=== PATIENT | female | born 1995 | race Hispanic/Latino ===

== ENCOUNTER 2019-01-15 18:25 | Emergency (ER) | payer BC, MEDICAID, OTHER ==
[2019-01-15 18:50] VITALS: BMI 29.1
--- NOTE | 2019-01-15 20:44 | OBHP ---
Datetime: 01/15/2019 19:40 IP Adm Impression: , intrauterine ; No Active Labor; Intact Membranes IP Admit Plan: Observation/Evaluation Admit Comment, IP Provider: 23 yo female G1 with and IUP at 31.6 weeks and sent by Dr. Rao after s he complain of Decrease Movement. Denies LOF, VB or VD EGA AdmitDate IP: 31.6 IP Chief Complaint: Decreased movement
[2019-01-15 21:08] LABS: SQUAMOUS EPITHIAL 2 /hpf (0-5); URINE BILIRUBIN NEGATIVE (NEGATIVE); URINE BLOOD NEGATIVE (NEGATIVE); URINE CLARITY Clear (Clear); URINE COLOR Yellow (YELLOW); URINE GLUCOSE (UA) NORMAL (Normal); URINE LEUKOCYTE ESTERASE NEG Leu/uL (Negative); URINE PROTEIN NEGATIVE (NEGATIVE); URINE UROBILINOGEN NORMAL mg/dL (0.2-1.0)
--- NOTE | 2019-01-15 22:43 | OBDCSUM ---
Datetime: 01/15/2019 21:59 Discharged to, Provider: Home Follow up at, Provider: Disch Instr Activity: Normal activity Disch Instr Diet: Regular Discharge Instructions, Provider: Routine instructions given Discharge Time: 01/15/2019 21:59 Follow up in weeks, Provider: 01/28/19 Disch Referrals: None Disch Activity Restrictions: No exercising; No lifting; Minimize stair-climbing Discharge Comment, Provider: A/P 31.6 weeks IUP Decrease movement NST and BPP, per Dr. Rao NST Reactive BPP 05/07 with DELANEY 23.8 Stable and Satisfactory condition Will D/C home with instructions to perform Kick counts and per Dr. Rao Will call Dr. Rao's office on Saturday for F/Upg Discharge Diagnosis Prov Other: Decrease Movement Mild Polyhydramnios
[2019-01-16 04:47] VITALS: BP 119/73; PULSE 97; RESP 18; TEMP 98.5
--- NOTE | 2019-01-16 09:03 | US ---
Date of service: 01/15/2019 PROCEDURE: Biophysical profile and limited obstetrical ultrasound HISTORY: Decreased Movement COMPARISON: None TECHNIQUE: Standard protocol for this study/examination. FINDINGS: FINDINGS: Biophysical profile score 8/8 Based on the followin. breathing movements: 2/2 2. Gross body movement: 2/2 3. tone: 2/2 4. Qualitative amniotic fluid index: 2/2 Amniotic fluid index 23.8 cm. Breech presentation. Anterior/fundal placenta. No evidence of abruption or previa Gestational age derived from LMP 31 weeks 6 days. CHIDI 03/13/2019. Gestational age derived from the following biometric parameters 32 weeks 3 days. CHIDI 03/09/2019 Biparietal diameter 8.26 cm Head circumference 30.16 cm Abdominal circumference 27.42 cm Femur length 6.10 cm Estimated weight 1859 g Calculated cardiac rate 132 beats per min. Closed cervix measuring 3.10 cm IMPRESSION: 32 weeks 3 days live intrauterine gestation. Gestational concordance documented. Anterior/fundal placenta. Breech presentation. Concordant findings (preliminary report) provided by [facility].
== END 2019-01-15 22:30 | disposition home or self-care (01) ==
LOC: C.EROB 18:25
DX: O36.8130 Decreased fetal movements, third trimester, not applicable or unspecified (principal); O40.3XX0 Polyhydramnios, third trimester, not applicable or unspecified; Z3A.31 31 weeks gestation of pregnancy

== ENCOUNTER 2019-02-14 02:15 | Emergency (ER) | payer BC ==
[2019-02-14 02:55] VITALS: BMI 30.5
[2019-02-14] MEDS ORDERED: Lactated Ringer's 1,000 ML IV ONE (03:18)
[2019-02-14 03:50] LABS: BASO # 0.1 K/uL (0.0-0.2); BASO % 1.1 % (0.0-2.0); EOS # 0.1 K/uL (0.0-0.7); EOS % 0.5 % (0.0-4.0); HEMOGLOBIN 10.5 g/dL (11.0-16.0); LYMPH # 2.3 K/uL (1.0-4.3); LYMPH % 21.1 % (20.0-40.0); MEAN CORPUSCULAR HEMOGLOBIN 31.1 pg (27.0-31.0); MEAN CORPUSCULAR HGB CONC 34.6 g/dL (33.0-37.0); MEAN PLATELET VOLUME 7.6 fL (7.2-11.7); MONO # 0.5 K/uL (0.0-0.8); MONO % 4.6 % (0.0-10.0); NEUT % 72.7 % (50.0-75.0); RBC 3.38 Mil/uL (3.80-5.20); RED CELL DISTRIBUTION WIDTH 13.9 % (11.5-14.5)
[2019-02-14 04:37] LABS: SQUAMOUS EPITHIAL 5 /hpf (0-5); URINE BACTERIA RARE (<OCC); URINE BILIRUBIN NEGATIVE (NEGATIVE); URINE BLOOD NEGATIVE (NEGATIVE); URINE CLARITY Hazy (Clear); URINE COLOR Yellow (YELLOW); URINE GLUCOSE (UA) NORMAL (Normal); URINE LEUKOCYTE ESTERASE NEG Leu/uL (Negative); URINE PROTEIN NEGATIVE (NEGATIVE); URINE UROBILINOGEN NORMAL mg/dL (0.2-1.0)
[2019-02-14] MEDS ORDERED: Betamethasone Soluspan 30 mg/5mL Inj Susp IM ONE (06:39)
--- NOTE | 2019-02-14 07:02 | OBHP ---
Datetime: 02/14/2019 03:17 IP Adm Impression: , intrauterine ; No Active Labor IP Admit Plan: Discharge home Admit Comment, IP Provider: This is a private patient of Dr. Alexandra Rao 23 y.o. , LMP 06/06/18, CHIDI 03/13/19, EGA 36w 1d c/o abdominal pressure and tightening that come s and goes: onset 1100 hours, pain scale then 6/10, worsening throughout the day until "worse" and sh e decided to come in for evaluation. At this time, pain scale 8/10 - 9/10. (+) AFM; Denies LOF, VB. L ast sexually active 3 weeks ago. Did not call her doctor all day "I thought it was just his positioni ng. I felt all the presure only on my left side. I got concerned when my whole abdomen felt the press ure and tightness". (+) stuffy nose. Denies fever, chills, cough; nausea, vomiting; headaches, dizzin ess, lightheadedness, palpitations, chest pain or shourtness of breath. No sick contacts. Drinks appr oximately 3, 16-oz bottles of water per day. care: Dr. Rao: noted for "the fluid is high around the baby". No other issues. 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 (+) ron, 2017. Denies other STIs, abnormal Pap, myomata or ovarian cysts PMH: denies PSH: denies NKDA Meds: PNV - QD Soc Hx: denies tobacco, illicit drug or EtOH use. With FOB x 3 years; (+) cohabitation. 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 Fam Hx: Mother alive 50 y.o. - thyroid disorder. Father - ;andrez cancer ( h/o tobacco use). No other fam h/o cancer. (+) Pat fam h/o DM P.E.: as above. WD; slightly anxious; in mild discomfort with contractions. Awake, alert, oriented to time, person and place. Pleasant and cooperative Assessment: 23 y.o. Po, 36w 1d, uterine contractions - R/O labor. R/O UTI. Category 1 carmen cng. Clinically stable. Pln: 1) IVFs 2) U/A and CBC 3) Re-examine in 2-3 hours. If no cervical change, can D/C home; prior to which to administer Celestone 12 mg IM x 1; repeat in 24 hours. 4) If cervical change is made, possible delivery - as per, and D/W, Dr. Rao Addendum: 0640 hours -Patient received in LDR#4, fell alseep and easily awakened. Reports pain has improved "I did fall asleep'". Pain scale now 2/10. Reports pain is still present under her right rib. "I don't feel the contractions any more".(+) AFM. - cervical exam: FT/30/-3. mid to anterior. firm in consistency - labs: WBC = 11. H/H 10.5/30.4. Assessment: No cervical change made - no evidence of labor. No evidence of UTI. Patient co unseled to increase p.o. intake of water to half her weight in ounces of water (approx 95 oz); to sto p working. Mild anemia - resume iron supplementation 1 tab per day; and to increase p.o. intake of ir on-rich foods. Plan: 1) Celestone 12 mg IM x 1 now, return in 24 hours to complete course with second dose 2) As above. 3) Reviewed S/S PTL 4) Keep appoinment for Saturday 5) Start iron 1 tab p.o. QD 6) Discharge home - as per, and D/W, Dr. Rao Pelvic Type - PN: Adequate Extremities - PN: Normal Abdomen - PN: Normal Back - PN: Normal Breast - PN: Not Done Lungs - PN: Normal Heart - PN: Normal Thyroid - PN: Not Done Neurologic - PN: Normal HEENT - PN: Normal General - PN: Normal Presentation-Admit: Vertex FHR - Baseline A Provider: 135 Contraction Comments Provider: 3-4 Comments, ACOG Physical Exam: Abdomen: Gravid. Non tender. Moderately firm with contractions. Fundal height 37cm Cervical exam: very anterior, firm All other systems reviewed and are negative Gestation - Est Wks by US: 36w 1d EGA AdmitDate IP: 36.1 Vital Signs Provider: Reviewed; Within Normal Limits IP Chief Complaint: Uterine contractions NICHD Variability Prov Fetus A: Moderate 6-25bpm NICHD Accel Fetus A IP Provider: 15X15 FHR Category Provider Fetus A: Category I NICHD Decel Fetus A IP Provider: None Dilatation, Provider: FT Effacement, Provider: 30 Station, Provider: -3 Genitourinary Exam: Normal DTRs - PN: Not Done Datetime: 01/15/2019 19:40 Membranes, Provider: Intact
[2019-02-14 11:36] VITALS: BP 121/68; PULSE 97; RESP 20; TEMP 97.2
== END 2019-02-14 07:36 | disposition home or self-care (01) ==
LOC: C.EROB 02:15
DX: O47.03 False labor before 37 completed weeks of gestation, third trimester (principal); Z3A.36 36 weeks gestation of pregnancy
CPT/HCPCS: 81001; 85025; 96360; 96372; 99284; J0702; J7120

== ENCOUNTER 2019-02-25 17:18 | Inpatient (IN) | payer BC, MEDICAID ==
[2019-02-25 17:51] VITALS: BMI 31.3
[2019-02-25] MEDS ORDERED: Lactated Ringer's 1,000 ML IV ONE (17:51)
--- NOTE | 2019-02-25 18:20 | OBHP ---
Datetime: 02/25/2019 18:06 IP Adm Impression: Term, intrauterine ; No Active Labor IP Admit Plan: Admit to unit; Initiate labor induction protocol Admit Comment, IP Provider: This is a private patient of Dr. Alexandra Rao 23 y.o. , LMP 06/06/18, CHIDI 03/13/19, EGA 37w 5d for IOL due to polyhydramnios: per patient DELANEY 02/18 = 31 cm; 02/24 28 cm. (+) AFM; Denies LOF, VB. Last sexually active 2 nights ago. Denies fever, chills, cough; nausea, vomiting; headaches, dizziness, lightheadedness, palpitations, chest pain or s hourtness of breath. Seen 02/14 for contractions: S/P celestone x 1 does; did not return for s econd dose "I gues I misunderstood when I was discharged". care: Dr. Rao: Po;yhydramnios. Abnormal 1 hr glucose screen = 141; 3hr GTT 84/142/138/ 102. 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 Denies other STIs, abnormal Pap, myomata or ovarian cysts PMH: denies PSH: denies NKDA Meds: PNV - QD Soc Hx: denies tobacco, illicit drug or EtOH use. With FOB x 3 years; (+) cohabitation. 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 Fam Hx: Mother alive 50 y.o. - thyroid disorder. Father - ;andrez cancer ( h/o tobacco use). No other fam h/o cancer. (+) Pat fam h/o DM P.E.: as above. WD in NAD. Awake, alert, oriented to time, person and place. Pleasant and cooperat dina. Acompanied by Assessment: 23 y.o. P0, 37w 5d, IOL due to polyhydramnios. GBS (+). Category 1 tracing. D/W patie nt: cervical ripening agent, possible pitocin, pain managemnet options. Patient expressed an understa nding and agrees. No questions offered. Patient is clincially stable. Plan: 1) Admit 2) NPO 3) IVFs 4) Continuous EFM 5) Admission labs 6) Cervidil 7) Start penicillin when in active labor. 8) Anticpate vaginal delivery -as per Dr. Rao Pelvic Type - PN: Adequate Extremities - PN: Normal Abdomen - PN: Normal Back - PN: Normal Breast - PN: Not Done Lungs - PN: Normal Heart - PN: Normal Thyroid - PN: Not Done Neurologic - PN: Normal HEENT - PN: Normal General - PN: Normal FHR - Baseline A Provider: 145 Comments, ACOG Physical Exam: Abdomen: Gravid. Soft. Non tender. Fundal height All other systems reviewed and are negative Gestation - Est Wks by US: 37w 5d IP Hx Assessment: The History has been Reviewed and is Current EGA AdmitDate IP: 37.5 Vital Signs Provider: Reviewed IP Chief Complaint: Scheduled induction of labor NICHD Variability Prov Fetus A: Moderate 6-25bpm Genitourinary Exam: Normal DTRs - PN: Not Done
[2019-02-25 18:22] LABS: BASO % 0.3 % (0.0-2.0); EOS % 0.3 % (0.0-4.0); HEMOGLOBIN 10.5 g/dL (11.0-16.0); LYMPH # 2.2 K/uL (1.0-4.3); LYMPH % 16.6 % (20.0-40.0); MEAN CELL VOLUME 88.4 fL (81.0-99.0); MEAN CORPUSCULAR HEMOGLOBIN 30.5 pg (27.0-31.0); MEAN CORPUSCULAR HGB CONC 34.6 g/dL (33.0-37.0); MEAN PLATELET VOLUME 7.6 fL (7.2-11.7); MONO # 0.8 K/uL (0.0-0.8); MONO % 5.6 % (0.0-10.0); NEUT # 10.3 K/uL (1.8-7.0); NEUT % 77.2 % (50.0-75.0); NRBC % 0.1 % (0.0-2.0); RBC 3.43 Mil/uL (3.80-5.20); RED CELL DISTRIBUTION WIDTH 14.1 % (11.5-14.5); WHITE BLOOD COUNT 13.4 K/uL (4.8-10.8)
[2019-02-25 18:30] LABS: SQUAMOUS EPITHIAL 12 /hpf (0-5); URINE BACTERIA OCC (<OCC); URINE BILIRUBIN NEGATIVE (NEGATIVE); URINE BLOOD NEGATIVE (NEGATIVE); URINE CALCIUM OXALATE CRYSTALS OCC /hpf (<OCC); URINE CLARITY Hazy (Clear); URINE COLOR Yellow (YELLOW); URINE GLUCOSE (UA) NORMAL (Normal); URINE LEUKOCYTE ESTERASE TRACE Leu/uL (Negative); URINE PROTEIN NEGATIVE (NEGATIVE); URINE UROBILINOGEN NORMAL mg/dL (0.2-1.0)
[2019-02-25] MEDS: Lactated Ringer's 1,000 ML IV SCH (18:39)
[2019-02-25 18:40] LABS: ALB/GLOB RATIO 1.2 (1.0-2.1); ALBUMIN 3.7 g/dL (3.5-5.0); ALT/SGPT 12 U/L (9-52); AST/SGOT 15 U/L (14-36); BLOOD UREA NITROGEN 11 mg/dL (7-17); CALCIUM 9.3 mg/dl (8.6-10.4); GFR NON-AFRICAN AMERICAN > 60
--- NOTE | 2019-02-25 18:56 | OBADHP ---
Datetime: 02/25/2019 18:06 Admit Comment, IP Provider: This is a private patient of Dr. Alexandra Rao 23 y.o. , LMP 06/06/18, CHIDI 03/13/19, EGA 37w 5d for IOL due to polyhydramnios: per patient DELANEY 02/18 = 31 cm; 02/24 28 cm. (+) AFM; Denies LOF, VB. Last sexually active 2 nights ago. Denies fever, chills, cough; nausea, vomiting; headaches, dizziness, lightheadedness, palpitations, chest pain or s hortness of breath. Seen 02/14 for contractions: S/P celestone x 1 dose; did not return for se cond dose "I guess I misunderstood when I was discharged". care: Dr. Rao: Polyhydramnios. Abnormal 1 hr glucose screen = 141; 3hr GTT 84/142/138/ 102. 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 Denies other STIs, abnormal Pap, myomata or ovarian cysts PMH: denies PSH: denies NKDA Meds: PNV - QD Soc Hx: denies tobacco, illicit drug or EtOH use. With FOB x 3 years; (+) cohabitation. 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 Fam Hx: Mother alive 50 y.o. - thyroid disorder. Father - lung cancer (h/o tobacco use). No other fam h/o cancer. (+) Pat fam h/o DM P.E.: as above. WD in NAD. Awake, alert, oriented to time, person and place. Pleasant and cooperat dina. Accompanied by Assessment: 23 y.o. P0, 37w 5d, IOL due to polyhydramnios. GBS (+). Category 1 tracing. D/W patie nt: cervical ripening agent, possible pitocin, pain management options. Patient expressed an understa nding and agrees. No questions offered. Patient is clincially stable. Plan: 1) Admit 2) NPO 3) IVFs 4) Continuous EFM 5) Admission labs 6) Cervidil 7) Start penicillin when in active labor. 8) Anticpate vaginal delivery -as per Dr. Rao Addendum: 1643 hours - cervidil placed in posterior vaginal vault Pelvic Type - PN: Adequate Extremities - PN: Normal Abdomen - PN: Normal Back - PN: Normal Breast - PN: Not Done Lungs - PN: Normal Heart - PN: Normal Thyroid - PN: Not Done Neurologic - PN: Normal HEENT - PN: Normal General - PN: Normal FHR - Baseline A Provider: 145 Membranes, Provider: Intact Contraction Comments Provider: irregular Comments, ACOG Physical Exam: Abdomen: Gravid. Soft. Non tender. Fundal height 41 cm All other systems reviewed and are negative Gestation - Est Wks by US: 37w 5d IP Hx Assessment: The History has been Reviewed and is Current Vital Signs Provider: Reviewed IP Chief Complaint: Scheduled induction of labor NICHD Variability Prov Fetus A: Moderate 6-25bpm FHR Category Provider Fetus A: Category I Dilatation, Provider: FT Effacement, Provider: 30 Station, Provider: -3 Genitourinary Exam: Normal DTRs - PN: Not Done EGA AdmitDate IP: 37.5 IP Adm Impression: Term, intrauterine ; No Active Labor IP Admit Plan: Admit to unit; Initiate labor induction protocol Datetime: 02/14/2019 03:17 Presentation-Admit: Vertex NICHD Accel Fetus A IP Provider: 15X15 NICHD Decel Fetus A IP Provider: None
[2019-02-26] MEDS ORDERED: Nalbuphine 20 mg/ml Inj (1 ml) IVP PRN (02:00)
[2019-02-26] MEDS ORDERED: Oxytocin 30 UNIT in NS 500 ml 30 UNITS/500 ML BAG IV SCH (07:00)
[2019-02-26] MEDS ORDERED: Lactated Ringer's 1,000 ML IV ONE (07:29)
[2019-02-26] MEDS ORDERED: Oxytocin 30 UNIT in NS 500 ml 30 UNITS/500 ML BAG IV ONE (07:44)
[2019-02-26] MEDS ORDERED: Penicillin G Potassium 5 MU in Dextrose 5% In Water 50 ML IV ONE (08:38)
[2019-02-26] MEDS ORDERED: Penicillin G 5 Million Unit Vial IVPB ONE ×2 (08:39→08:41)
[2019-02-26] MEDS ORDERED: Bupivacaine HCl 0.5% PF (10 ml) Inj ONE (08:50)
[2019-02-26] MEDS ORDERED: Bupivacaine HCl/FentaNYL Cit 100 ML EPI ONE ×2 (09:14→16:08)
--- NOTE | 2019-02-26 11:06 | OBPN ---
Datetime: 02/26/2019 07:23 IP Progress Impression: Normal progression of labor IP Procedures: Sterile Vag Exam IP Progress Plan: Continue present management; Augmentation; Anesthesia consult Membranes, Provider: Intact Contraction Comments Provider: irregular FHR - Baseline A Provider: 135 Gestation - Est Wks by US: 37w 6d Presentation-Admit: Vertex IP Progress Note Comment: Patient received in LDR#4: examined at approx 0720 hours It was explained to patient the next step in continued cervical ripening with the placement of int racervical balloon. Patient expressed an understanding and agrees. Cervical exam: as above. Intracervical balloon placed without incident, 80mL/80mL per balloon Assessment: 23 y.o. P0, 37w 6d, polyhydramnios - IOL. Cervical ripening as above. Category 1 marina ng. Patient receptive to epidural at this time. Patient is clinically stable. Plan: 1) As above. 2) Epidural placement 3) Pitocin augmentation 4) Anticipate vaginal delivery - as per Dr. Rao Vital Signs Provider: Reviewed; Within Normal Limits NICHD Accel Fetus A IP Provider: 15X15 FHR Category Provider Fetus A: Category I NICHD Variability Prov Fetus A: Moderate 6-25bpm Dilatation, Provider: 2 Effacement, Provider: 50 Station, Provider: -3 NICHD Decel Fetus A IP Provider: None
--- NOTE | 2019-02-26 12:23 | OBPN ---
Datetime: 02/26/2019 12:13 IP Progress Impression: Normal progression of labor IP Procedures: Artificial ROM IP Progress Plan: Continue present management Membranes, Provider: Ruptured Amniotic Fluid Color, Provider: Clear Contraction Comments Provider: q 2- 3m FHR - Baseline A Provider: 140 Gestation - Est Wks by US: 37.6 Presentation-Admit: Vertex IP Progress Note Comment: pt admitted for prom witwh polydramnios s/p cervidi s/p moody baloon pitocin forebag AROM clear VS EFM: Cat I TOCO: q 2- 3min Pit 10 mu/min a/p in active labor cont pitoic s/p epdiural cont current magnent Vital Signs Provider: Reviewed; Within Normal Limits FHR Category Provider Fetus A: Category I NICHD Variability Prov Fetus A: Moderate 6-25bpm Dilatation, Provider: 5 Effacement, Provider: 60 Station, Provider: -2 NICHD Decel Fetus A IP Provider: None
[2019-02-26] MEDS: Lactated Ringer's 1,000 ML IV SCH (13:18)
[2019-02-26] MEDS ORDERED: Sodium Citrate/Citric Acid 15 ml Sol PO ONE (15:51)
[2019-02-26] MEDS ORDERED: cefOXitin IV 2 gm in Dextrose 2 GM/50 ML BAG IVPB ONE ×2 (15:51→15:55)
[2019-02-26] MEDS ORDERED: Sodium Citrate/Citric Acid 15 ml Sol ONE (15:55)
[2019-02-26] MEDS ORDERED: Sodium Bicarbonate (8.4%) 50 mEq Vial ONE (16:22)
[2019-02-26] MEDS ORDERED: Lidocaine 2% MPF (5 ml) Inj ONE (16:25)
[2019-02-26] MEDS ORDERED: ePHEDrine 50 mg/ml Inj ONE (16:25)
[2019-02-26] MEDS ORDERED: Morphine 1 mg/ml preservative-free Inj(Duramorph) ONE (16:50)
[2019-02-26] MEDS ORDERED: Midazolam 2 MG/2 ML VIAL ONE (16:50)
--- NOTE | 2019-02-26 17:01 | OBPN ---
Datetime: 02/26/2019 14:46 IP Progress Impression: Reassuring heart rate IP Procedures: Intrauterine Pressure Catheter; Sterile Vag Exam IP Progress Plan: Induction Membranes, Provider: Ruptured Amniotic Fluid Color, Provider: Clear FHR - Baseline A Provider: 140 Gestation - Est Wks by US: 37.6 Presentation-Admit: Vertex IP Progress Note Comment: Pseen and examined per Dr. Rao's request SVE unchanged for more than 2 hours Pitocin at 14 Mu/min IUPC placed with ease and UC's adequate with MVU > 200 in 10 minutes Pitocin increased to 16 mU/min head still very high and pt aware of no descent until now Dr. Rao aware and states that she will be here shortly tracing reassuring Continue close monitoring at this time and present management NICHD Accel Fetus A IP Provider: 10X10 NICHD Variability Prov Fetus A: Moderate 6-25bpm Dilatation, Provider: 4-5 Effacement, Provider: 60 Station, Provider: -3 NICHD Decel Fetus A IP Provider: None
[2019-02-26] MEDS ORDERED: Oxycodone/Acetaminophen 5/325 mg Tab PO PRN (17:32)
[2019-02-26] MEDS: Simethicone 80 mg Chewtab PO SCH ×2 (20:30→21:55)
[2019-02-27] MEDS: Lactated Ringer's 1,000 ML IV SCH (00:48)
[2019-02-27 07:59] LABS: HEMOGLOBIN 10.1 g/dL (11.0-16.0); MEAN CELL VOLUME 88.7 fL (81.0-99.0); MEAN PLATELET VOLUME 7.7 fL (7.2-11.7); RBC 3.26 Mil/uL (3.80-5.20); RED CELL DISTRIBUTION WIDTH 14.1 % (11.5-14.5)
--- NOTE | 2019-02-27 09:19 | OBPPN ---
Datetime: 02/27/2019 09:16 PP Pain Prov: Within normal limits PP Nausea Prov: Denies PP Flatus Prov: No PP BM Prov: No PP Breasts Prov: Normal PP Heart Prov: Normal PP Lungs Prov: Normal PP Abdomen/Uterus Prov: Normal PP Lochia Prov: Normal PP Vulva/Perineum Prov: Normal PP CVA Tenderness Prov: Normal PP Extremities Prov: Normal PP C/S Incision Prov: Normal PP Progress Prov: Normal PP Impression Prov: Normal progression PP Plan Prov: Continue present management PP Progress Note Prov: pt seen and examined with no complaints. pt reprots pain controlled. pt is am bulating, voidng, passing flatus, bresat feeding, pt denie any fever, chills, nause, vomiting, cp, so b, lightheadness, dizzyness VSS PE GEN NAD AA ox 3 BREAST: NT, Non engorged b/l CVS: RRR, +S1/S2 ABD: soft, NT/ND, +BS, no guarding no broeudn tendners,s no rgidity FUNDUS: Firm, below level of umbilius INCISCION C/D?I healign well VE: minimal lochia, non fusl smelling EXT: negative homans sign, no calf tendnerness a/p s/p PLTCS POD #1 doing well, stable for discharge dc moody regular diet bowel regimen abdominal binder incentive spirometer am labs Vital Signs Provider PP: Reviewed
[2019-02-27] MEDS: Simethicone 80 mg Chewtab PO SCH ×4 (10:32→22:36)
[2019-02-27] MEDS: Prenatal Multivit/Folic Acid/Iron Tab PO SCH (10:32)
--- NOTE | 2019-02-27 13:12 | OP ---
PROCEDURE DATE: 02/26/2019 PREOPERATIVE DIAGNOSIS: Arrest of dilation. POSTOPERATIVE DIAGNOSIS: Arrest of dilation. PROCEDURE PERFORMED: Primary low transverse section. SURGEON: Alexandra Rao MD CLARITY DEVELOPER: Shahida Mehta DO OPERATIVE FINDINGS: A live male infant, Apgars 9 and 9, weight of 7 pounds 3 ounces. Normal-appearing uterus, tubes and ovaries bilaterally. Cord noted at uterine incision. Dr. Shahida Mehta was the assistant public defender present for the entire case and essential in gaining entry, retraction, exposure, helping to hold the bladder blade, delivering the , closing all layers and was present for the entire case. ESTIMATED BLOOD LOSS: 800 mL. BLOOD PRODUCTS: None. COMPLICATIONS: None. SPECIMEN: Placenta. DESCRIPTION OF PROCEDURE: The patient was taken to the operating room where she was given spinal anesthesia. Once it was found to be adequate. She was placed on the operating table in the dorsal supine position. The patient was then prepped and draped in the usual sterile fashion. Time-out confirmed correct patient and correct procedure. The patient was given preoperative prophylactic antibiotic. A Pfannenstiel skin incision was made with a scalpel and carried down to the underlying layer of the fascia with the Bovie. The fascia was incised in the midline and the incision was extended laterally with the Bovie. The inferior aspect of the fascial incision was grasped, elevated with Yaniv clamps, and the underlying rectus muscles dissected off bluntly. Attention was then turned to the inferior aspect in a similar fashion, was grasped, elevated with Yaniv clamps, and the underlying rectus muscles were dissected off bluntly. The rectus muscles were then bluntly in the midline. The peritoneum was identified in the clear space. The incision was extended laterally and superiorly until there was good visualization of the bladder. The lower end of the [place] was then inserted. The vesicouterine peritoneum was incised bluntly. The incision was extended laterally and superiorly until there was good visualization of the bladder. The lower end of the [place] was then reinserted. Vesicouterine peritoneum was incised with Metzenbaum scissors. A bladder flap was created digitally. The lower end of the [place] was then reinserted. The lower uterine segment was incised in a transverse fashion with a scalpel. The uterine incision was extended laterally with bandage scissors. The surgeon's hand entered the uterine cavity. There was umbilical cord noted to be protruding from once the uterine incision was made which was carefully came out. The surgeon's hand entered the uterine cavity. The 's head was delivered atraumatically, followed by delivery of the shoulders, followed by delivery of the body. Both oral and nasal passages of the baby were bulb suctioned. The umbilical cord was clamped and cut. Baby was handed off to the awaiting nursery school attendant. Cord blood and cord gases were collected and sent x2. The placenta was then delivered manually. The uterus was exteriorized and cleared of all clots and debris. The uterine incision was repaired with 0-Vicryl in a running continuous locked fashion. A second layer of the same suture was used to close the uterus in a running imbricated manner. There was good hemostasis noted at the uterine incision site. There were normal tubes and ovaries bilaterally. The uterus was returned to the abdomen. The paracolic gutters were cleared of all clots and debris. There was good hemostasis at the uterine incision site. The peritoneum was reapproximated with 2-0 chromic in a running continuous fashion. The rectus was reapproximated and closed with 2-0 chromic in an interrupted manner. The fascia was reapproximated and closed with 0-Vicryl in a running continuous manner. The subcutaneous space was closed with 2-0 plain in an interrupted manner. The skin was reapproximated with 4-0 Monocryl in a running subcuticular fashion. At the end of the procedure, all needles, sponge and instrument counts were noted to be correct x2. The patient tolerated the procedure well and was transferred to recovery room in stable condition. Alexandra Rao MD
[2019-02-28] MEDS: Oxycodone/Acetaminophen 5/325 mg Tab PO PRN ×2 (06:37→09:57)
[2019-02-28] MEDS: Simethicone 80 mg Chewtab PO SCH ×4 (09:52→22:10)
[2019-02-28] MEDS: Prenatal Multivit/Folic Acid/Iron Tab PO SCH (09:52)
--- NOTE | 2019-02-28 12:49 | OBPPN ---
Datetime: 02/28/2019 12:45 PP Pain Prov: Within normal limits PP Nausea Prov: Denies PP Flatus Prov: Yes PP Breasts Prov: Normal PP Heart Prov: Normal PP Lungs Prov: Normal PP Abdomen/Uterus Prov: Normal PP Lochia Prov: Normal PP Vulva/Perineum Prov: Normal PP CVA Tenderness Prov: Normal PP Extremities Prov: Normal PP Comments Phys Exam Prov: INCISION: C/D/I PP Impression Prov: Normal progression PP Plan Prov: Continue present management PP Progress Note Prov: DOING WELL, NO COMPLAINTS, AMBULATING, TOLERATING PO DIET. VSS:AFEBRILE INCISION C/D/I EXT: NO EDEMA B/L HGB: 10.2 S/P PLTCS POD #2 1) VSS: AFEBRILE 2) ENCOURAGED AMBULATION. 3) PAIN: CONTRLLED WITH PAIN MEDS. 4) ROUTINE POST OP CARE.
[2019-03-01] MEDS: Oxycodone/Acetaminophen 5/325 mg Tab PO PRN (07:10)
[2019-03-01 08:09] VITALS: RESP 18
[2019-03-01] MEDS: Prenatal Multivit/Folic Acid/Iron Tab PO SCH (09:27)
[2019-03-01] MEDS: Simethicone 80 mg Chewtab PO SCH ×4 (09:27→21:10)
[2019-03-02] MEDS: Simethicone 80 mg Chewtab PO SCH ×3 (10:04→17:30)
[2019-03-02] MEDS: Prenatal Multivit/Folic Acid/Iron Tab PO SCH (10:05)
--- NOTE | 2019-03-02 18:22 | OBDCSUM ---
Datetime: 03/02/2019 18:15 Discharged to, Provider: Home Follow up at, Provider: Dr. Rao Disch Instr Activity: Normal activity Disch Instr Diet: Regular Discharge Instructions, Provider: Routine instructions given Discharge Diagnosis, Provider: Term Delivered Discharge Time: 03/02/2019 18:15 Follow up in weeks, Provider: 1 week Disch Referrals: None Contraception discussed, Prov: Yes Disch Activity Restrictions: No exercising; No lifting; No driving; Minimize stair-climbing; No sexu al activity; Nothing in vagina - [place], tampons, douche Discharge Comment, Provider: Pt seen and examined per Dr. Rao's request POD # 4 A/P Primary C/S secondary to AODand D Stable and Satisfactory condition and recovery Discharged home with instructions and Rx for Motrin and Percocet, per Dr. Rao Contraception after Delivery: Undecided Datetime: 03/01/2019 08:20 Discharge Time: 03/02/2019 19:00 Follow up in weeks, Provider: 2 days
[2019-03-02 22:51] VITALS: BP 118/85; PULSE 100; TEMP 98.2; O2SAT 98
--- NOTE | 2019-03-04 21:15 | OBDCSUM ---
Datetime: 03/04/2019 21:12 Discharged to, Provider: Home Follow up at, Provider: dr francis Disch Instr Activity: Normal activity Disch Instr Diet: Regular Discharge Instructions, Provider: Routine instructions given Discharge Diagnosis, Provider: Term Delivered Discharge Time: 03/02/2019 21:12 Follow up in weeks, Provider: 1 week Disch Referrals: None Contraception discussed, Prov: Yes Disch Activity Restrictions: No sexual activity; Nothing in vagina - [place], tampons, douche Contraception after Delivery: Undecided
--- NOTE | 2019-03-04 21:24 | OBPPN ---
Datetime: 03/04/2019 21:14 PP Pain Prov: Abnormal PP Nausea Prov: Denies PP Flatus Prov: Yes PP Breasts Prov: Normal PP Heart Prov: Normal PP Lungs Prov: Normal PP Abdomen/Uterus Prov: Normal PP Lochia Prov: Normal PP Vulva/Perineum Prov: Normal PP CVA Tenderness Prov: Normal PP Extremities Prov: Normal PP C/S Incision Prov: Normal PP Progress Prov: Normal PP Progress Note Prov: dleyaed entry pt seen and examien dpod #3 wtiher severe headache and pain over incciosn not conolee with medcain pt dneis an nause, voting, cp, sob, bowel ro bladdre ocmpaitns vs see apboe pe see aobve a/p s/p ptlsc pod #3 with post op pain and headache pain lili burroughs prin headaceh hydration regular diet if persitsence consdier neuro conuslt Vital Signs Provider PP: Reviewed
== END 2019-03-02 18:40 | disposition home or self-care (01) | DRG 540 ==
LOC: C.EROB 17:18 → C.4D 17:47 → C.4M 02-26 20:35
PROVIDERS: ADMIT Obstetrics & Gynecology; ATTEND Obstetrics & Gynecology
PROC: 3E0P7VZ Introduction of Hormone into Female Reproductive, Via Natural or Artificial Opening (ICD-10-PCS; 2019-02-25)
PROC: 10D00Z1 Extraction of Products of Conception, Low, Open Approach (ICD-10-PCS; principal; 2019-02-26)
DX: O40.3XX0 Polyhydramnios, third trimester, not applicable or unspecified (principal); O62.0 Primary inadequate contractions; O99.824 Streptococcus B carrier state complicating childbirth; Z37.0 Single live birth; Z3A.37 37 weeks gestation of pregnancy